=== PATIENT | male | born 1955 | race Caucasian/White ===

== ENCOUNTER 2017-04-20 08:34 | Emergency (ER) | payer OTHER ==
[2017-04-20] MEDS ORDERED: DEXAMETHASONE 10 MG/ML VIAL PO STA (08:53)
[2017-04-20] MEDS ORDERED: LIDOCAINE PATCH 5% TOP STA (08:53)
--- NOTE | 2017-04-20 08:58 | ED Physician Documentation ---
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 visiting locally on his sailboat approx 3 days of right posterior hip/pelvis pain with radiation down lateral leg and numbness to great toe was int then more constant and severe, this AM after ibuprofen a little better no fever no recent dental work surgery no IV meds/drugs no abd pain no other numbness no incont, hesitancy, hematuria some weakness related to the pain no hx same no trauma Review of Systems Constitutional: denies: Fever Cardiac: denies: Chest pain / pressure Respiratory: denies: Dyspnea GI: denies: Abdominal Pain : denies: Hesitancy, Incontinent, Hematuria Skin: denies: Rash Musculoskeletal: reports: Back pain, Extremity pain Neurologic: denies: Focal weakness, Numbness Endocrine: denies: Easy bruising / bleeding Immunocompromised: denies: Immunocompromised PD PAST MEDICAL HISTORY - Present Medications Home Medications: Ambulatory Orders Medication Instructions Recorded Confirmed Ibuprofen 200 mg PO PRN PRN 04/20/17 04/20/17 Lidocaine Patch 5% [Lidoderm Patch] 1 each TOP DAILY PRN #10 patch 04/20/17 predniSONE [Deltasone] 20 mg PO [id number] #21 tab 04/20/17 - Allergies Allergies/Adverse Reactions: Allergies Allergy/AdvReac Type Severity Reaction Status Date / Time No Known Drug Allergies Allergy Verified 04/20/17 08:43 PD ED PE NORMAL - Vitals Vital signs reviewed: Yes - General General: Alert and oriented X 3 - Neck Neck: Supple, no meningeal sign - Cardiac Cardiac: RRR, No murmur - Respiratory Respiratory: No respiratory distress - Abdomen Abdomen: Soft, Non tender, Other (no pulsatile mass appreciated) - Back Back: No spinal TTP (and no focal redness swelling or warmth, some TTP R SI jt region, no shingles rash) - Derm Derm: Normal color - Extremities Extremities: No deformity - Neuro Neuro: Alert and oriented X 3, No motor deficit, No sensory deficit (toe not numb at this time, hip flexion, knee ext, foot dorsi plantar and great toe ext 5 /5, nl sensation at this time, denies saddle anesthesia, stronge pedal pulses, + SLR, no clonus) Results - Vitals Vitals: Vital Signs - 24 hr 09/12/17 08:38 Temperature 36.6 C Heart Rate 54 L Respiratory 16 Rate Blood Pressure 145/82 H O2 Saturation 98 Oxygen O2 Source Room air - Rads (name of study) pelvis Radiology: See rad report (neg) PD MEDICAL DECISION MAKING - ED course ED course: due to age and no specific inciting incident did get palin film pelvis and no bony abn/mets seen abd NT and no pulsatile mass and pt with good periph circulation doubt AAA/ dissection causing sx will tx for sciatica and d/w pt that if not better with symptomatic tx may need to fup for MRI at some point given 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 The pain is very consistent with sciatica For now I recommend symptomatic treatment - the steroids will decrease the inflammation of the sciatic nerve, the lidocaine patches can be applies to your low right back where the pain is the worst, and try the stretches and tennis ball massage as we discussed Do not take the ibuprofen while taking the steroids - it is fine to take tylenol for pain though I think it is fine for you to continue your boat trip through the [facility] - medical care is available in the [facility] if you get acutely worse Please call ahead and make a follow up appointment with your PMD for when you get back - if the symptoms do not get better further imaging such as a CT or MRI may be considered Also please have your PMD recheck your blood pressure - it was high today
[2017-04-20] MEDS ORDERED: DEXAMETHASONE 10 MG/ML VIAL ONE (08:59)
[2017-04-20] MEDS ORDERED: LIDOCAINE PATCH 5% TOP ONE (09:00)
--- NOTE | 2017-04-20 09:42 | XRAY Preliminary Report ---
Exam: XR Pelvis 1 View IMPRESSION: Negative pelvis radiography. [facility] SITE ID: [id number]
--- NOTE | 2017-04-20 09:44 | XRAY Report ---
EXAM: PELVIS RADIOGRAPHY EXAM DATE: 04/20/2017 09:12 AM. CLINICAL HISTORY: Right SI joint pain with radiating down to the back of the right leg and to the rig ht great toe, radiculopathy. COMPARISON: None. TECHNIQUE: 1 view. FINDINGS: Bones: No fracture or bone lesion. Joints: The visualized hip, pubis symphysis, and sacroiliac joints are preserved. No subluxation. Soft Tissues: There are 2 calcified nodules in the right gluteal soft tissue versus in the right brent c bone, the largest one of 1 x 1.3 cm, uncertain clinical significance. No soft tissue swelling. IMPRESSION: Negative pelvis radiography. [facility] Referring Provider Line: [phone] SITE ID: [id number]
[2017-04-20 10:16] VITALS: BP 127/86
== END 2017-04-20 10:16 | disposition home or self-care (01) ==
LOC: ED 08:34
DX: M54.31 Sciatica, right side (principal)
CPT/HCPCS: 72170; 99283; A9270